=== PATIENT | male | born 1935 | race Caucasian/White ===

== ENCOUNTER 2017-06-01 13:17 | Observation (INO) | payer MEDICARE, OTHER ==
[~2017-06-01] VITALS: Ht 180.3 cm; Wt 93.4 kg
[2017-06-01 15:10] LABS: BASOPHILS 0.3 % (0-2); EOSINOPHILS 0.9 % (0-7); HEMATOCRIT 41.8 % (42.0-54.0); HEMOGLOBIN 13.5 g/dL (13.5-17.5); IMMATURE GRANULOCYTES 0.5 % (0-5); LYMPHOCYTES 9.8 % (15-50); MCH 29.8 pg (26.0-34.0); MCHC 32.3 g/dL (31.0-37.0); MCV 92.3 fL (80.0-100.0); MEAN PLATELET VOLUME 9.9 fL (7.4-10.4); MONOCYTES 9.7 % (2-11); NEUTROPHILS 78.8 % (40-80); PLATELET COUNT 180 10x3/uL (130-400); RBC 4.53 10x6/uL (4.20-6.10); RDW 13.8 % (11.5-14.5)
[2017-06-01 15:27] LABS: ALBUMIN 3.5 g/dL (3.4-5.0); ALKALINE PHOSPHATASE 104 U/L (46-116); ALT (SGPT) 18 U/L (10-68); BILIRUBIN - TOTAL 0.26 mg/dL (0.2-1.3); CALC OSMOLALITY 283 mosm/kg (275-300); CALCIUM 8.5 mg/dL (8.5-10.1); CARBON DIOXIDE 30.3 mmol/L (21.0-32.0); CHLORIDE - SERUM 104 mmol/L (98-107); CREATININE - SERUM 1.4 mg/dL (0.6-1.3); POTASSIUM - SERUM 4.2 mmol/L (3.5-5.1); PROTEIN - SERUM 7.6 g/dL (6.4-8.2); SODIUM 140 mmol/L (136-145); UREA NITROGEN 18 mg/dL (7-18); eGFR NON AFRICAN AMERICAN 51 mL/min (90-120)
[2017-06-01 15:28] LABS: GLUCOSE 157 mg/dL (74-106)
[2017-06-01 15:40] LABS: CKMB 0.3 U/L (0.0-3.6); CREATINE KINASE 59 UL (21-232); TROPONIN-I < 0.017 ng/mL (0.000-0.060)
[2017-06-01 16:01] LABS: APPEARANCE HAZY (CLEAR); BILIRUBIN NEGATIVE (NEGATIVE); COLOR DK YELLOW (YELLOW); GLUCOSE NEGATIVE (NEGATIVE); KETONE SMALL mg/dL (NEGATIVE); NITRITE NEGATIVE (NEGATIVE); PROTEIN 1+ mg/dL (NEGATIVE); SPECIFIC GRAVITY 1.025 (1.005-1.020); UROBILINOGEN NORMAL (NORMAL)
[2017-06-01 16:02] LABS: EPITHELIAL CELLS 0-5 /hpf (0-5); LEUKOCYTE ESTERASE TRACE (NEGATIVE); MUCUS >1+ /lpf (NONE SEEN); RED CELLS - URINE 0-5 /hpf (0-5)
[2017-06-01 16:03] LABS: BACTERIA FEW /hpf (NONE SEEN)
[2017-06-01 20:00] VITALS: BP 173/89
[2017-06-01 22:57] LABS: CKMB 0.3 U/L (0.0-3.6); CREATINE KINASE 57 UL (21-232); TROPONIN-I < 0.017 ng/mL (0.000-0.060)
[2017-06-02] VITALS: BP 136/88
[2017-06-02 00:59] VITALS: BMI 29.0
[2017-06-02] MEDS ORDERED: HYTRIN5 MG PO (01:41)
[2017-06-02] MEDS ORDERED: ATIVAN0.5 MG PO (01:42)
[2017-06-02] MEDS ORDERED: CLARITIN 10 MG10 MG PO (01:44)
[2017-06-02] MEDS ORDERED: PAROXETINE HCL10 MG PO (01:45)
[2017-06-02] MEDS ORDERED: BAYER CHEWABLE81 MG PO (01:46)
[2017-06-02] MEDS ORDERED: NAMENDA10 MG PO (01:46)
[2017-06-02] MEDS ORDERED: VITAMIN E400 UNI2 PO (01:47)
[2017-06-02] MEDS ORDERED: ASCORBIC ACID500 MG PO (01:48)
[2017-06-02] MEDS ORDERED: TUMS500 MG PO (01:49)
[2017-06-02] MEDS ORDERED: ACETAMINOPHEN500 M1 PO (01:49)
[2017-06-02] MEDS ORDERED: SYSTANE 0.3-0.4%5 ML EACH EYE (01:51)
[2017-06-02 03:46] LABS: BASOPHILS 0.4 % (0-2); EOSINOPHILS 5.4 % (0-7); HEMATOCRIT 38.2 % (42.0-54.0); HEMOGLOBIN 12.3 g/dL (13.5-17.5); IMMATURE GRANULOCYTES 0.4 % (0-5); LYMPHOCYTES 28.8 % (15-50); MCH 29.6 pg (26.0-34.0); MCHC 32.2 g/dL (31.0-37.0); MEAN PLATELET VOLUME 10.1 fL (7.4-10.4); MONOCYTES 13.2 % (2-11); NEUTROPHILS 51.8 % (40-80); PLATELET COUNT 176 10x3/uL (130-400); RBC 4.15 10x6/uL (4.20-6.10); RDW 13.9 % (11.5-14.5)
[2017-06-02 03:47] LABS: WBC 5.5 10x3/uL (4.8-10.8)
[2017-06-02 04:00] VITALS: BP 147/84
[2017-06-02 04:10] LABS: CALC OSMOLALITY 282 mosm/kg (275-300); CALCIUM 8.1 mg/dL (8.5-10.1); CARBON DIOXIDE 28.2 mmol/L (21.0-32.0); CHLORIDE - SERUM 107 mmol/L (98-107); CKMB 0.5 U/L (0.0-3.6); CREATINE KINASE 81 UL (21-232); CREATININE - SERUM 1.2 mg/dL (0.6-1.3); GLUCOSE 100 mg/dL (74-106); POTASSIUM - SERUM 4.2 mmol/L (3.5-5.1); SODIUM 141 mmol/L (136-145); TROPONIN-I < 0.017 ng/mL (0.000-0.060); UREA NITROGEN 18 mg/dL (7-18); eGFR NON AFRICAN AMERICAN 61 mL/min (90-120)
--- NOTE | 2017-06-02 07:40 | NUR ---
PATIENT RECEIVED IN HIGH GONZALEZ POSITION. NO SIGNS OF DISTRESS NOTED. FAMILY AT BEDSIDE. DENIES NEEDS. SIDE RAILS UP X2. BED IN LOW POSITION. CALL LIGHT IN REACH.
[2017-06-02 07:58] VITALS: BP 142/82
--- NOTE | 2017-06-02 08:50 | NUR ---
PATIENT ALERT IN BED EATING BREAKFAST. TOLERATING WELL. SCHEDULED MEDICATION ADMINISTERED. FAMILY PRESENT. SCHEDULED MEDICATION ADMINISTERED. DENIES NEEDS. BED IN LOW POSITION. CALL LIGHT IN REACH. SIDE RAILS UP X2.
[2017-06-02 10:12] LABS: CKMB 0.7 U/L (0.0-3.6); CREATINE KINASE 68 UL (21-232)
[2017-06-02 10:16] LABS: TROPONIN-I < 0.017 ng/mL (0.000-0.060)
[2017-06-02 12:24] VITALS: BP 154/87
[2017-06-02 12:40] VITALS: Ht 180.3 cm; Wt 93.4 kg
--- NOTE | 2017-06-02 13:00 | NUR ---
PATIENT UP AMBULATING IN ROOM WITH ASSIST FROM FAMILY. NO SIGNS OF DISTRESS NOTED.
[2017-06-02] MEDS ORDERED: KEFLEX500 MG PO (13:34)
--- NOTE | 2017-06-02 13:45 | NUR ---
SITTING UP IN CHAIR AT BEDSIDE. NO SIGNS OF DISTRESS NOTED. FAMILY PRESENT. ANTICIPATING D/C HOME. IV TO LEFT FOREARM D/C WITH CATH TIP INTACT. SITE COVERED WITH GAUZE AND BANDAID.
--- NOTE | 2017-06-02 13:55 | NUR ---
Patient Name: KARINA MORA Admission Status: ER Accout number: [id number] Admission Date: 06-01-2017 : 1933 Admission Diagnosis: Attending: RAMO HERRERA Current LOS: 1 Anticipated DC Date: 06-02-2017 Planned Disposition: Home Primary Insurance: MEDICARE A & B Discharge Planning Comments: CM MET WITH FAMILY REGARDING D/C NEEDS AND PLANS. PATIENT IS DISCHARGING HOME TODAY. FAMILY STATED PATIENT HAS DEMENTIA AND THEY WILL DRIVE HIM HOME AT DISCHARGE. DAUGHTER STATED PATIENT NEEDS HELP WITH BATH, DRESSING, AND MED MGT. PATIENTS PCP IS DR. GHOSH AND PHARMACY IS [facility]. FAMILY REF. HOME HEALTH AND REQUESTED INFO ON IN HOUSE CARE. CM GAVE FAMILY INFORMATION REGARDING IN HOME CARE. CM WILL CONTINUE TO FOLLOW PATIENT WITH D/C NEEDS AND PLANS. PCP DR. [facility] [phone] JASWINDER () [phone] Medical Sales Associate: Judi Silverio Is the patient Alert and Oriented? No 0 * How many steps to enter\exit or inside your home? 3 0 * PCP DR. GHOSH 0 * Pharmacy [facility] 0 * Preadmission Environment Home with Family 0 * ADLs Independent 0 * Equipment None 0 * List name and contact numbers for known caregivers / representatives who currently or will assist patient after discharge: JASWINDER () [phone] * Community resources currently utilized None 0 * Additional services required to return to the preadmission environment? Yes 0 * Can the patient safely return to the preadmission environment? Yes 0 * Has this patient been hospitalized within the prior 30 days at any hospital? No 0 Grand Total: 0
--- NOTE | 2017-06-02 14:29 | HP ---
PATIENT: KARINA MORA MEDICAL RECORD: [id number] ACCOUNT: [id number] LOCATION:D.[facility] [id number] : 33 ADMISSION DATE: 06/01/17 HISTORY AND PHYSICAL EXAMINATION REASON FOR ADMISSION: Syncopal episode. HISTORY OF PRESENT ILLNESS: The patient is an 82-year-old male with advanced late-onset dementia. He was at home with his when he was walking down some stairs. Reportedly, he called out to his and she helped him at the stairs. He sat in the chair, his head popped back and he was "out for 15 minutes." His said he looked pale, but did not turn blue and had no trouble breathing, did not seize or have any incontinence. By the time EMS arrived, he was still sitting back to the chair, but was coming around. His pulse was somewhat thready, but by the time EMS evaluated him, he was awake and more alert and denied any problems or any recollection of what happened. For that reason, he was brought to the ED and initial exam shows no new deficits. He denies any recent headache, visual change, chest pain or new confusion. PAST MEDICAL HISTORY: Late-onset dementia, history of anxiety, depression, fatigue, insomnia; history of mitral valve regurgitation, moderate; hypertension. PAST SURGICAL HISTORY: He had an inguinal hernia repair approximately [address] Lala[address] He has had cataract surgery in the past in the right eye. HOME MEDICATIONS: Loratadine 10 mg a day, aspirin 81 mg a day, terazosin 5 mg a day, lorazepam 0.5 mg p.r.n. anxiety and memantine 10 mg b.i.d. ALLERGIES: None mentioned. SOCIAL HISTORY: Former smoker. Does not drink alcohol. Lives with his . FAMILY HISTORY: Father at 69 from hypertension and heart disease. Mother at 74 from some type of cancer. REVIEW OF SYSTEMS: The patient currently is sitting up in the ED on the gurney without problems. GENERAL: He denies any recent fatigue or new-onset headaches or fever. HEENT: He has some trouble with his vision, but no big change recently. Denies hearing difficulty. RESPIRATORY: Denies shortness of breath or cough. CARDIAC: Denies exertional chest pain or claudication. GASTROINTESTINAL: No nausea, vomiting or change in stools. ENDOCRINE: Denies polyuria or polydipsia. NEUROLOGIC: Denies history of stroke. Does admit that he has poor memory. He denies any history of head trauma or seizures in the past. ENDOCRINE: Nocturia once nightly. Denies polyuria or polydipsia. INTEGUMENT: No rash or itching. PSYCHIATRIC: Denies depressed mood PHYSICAL EXAMINATION: VITAL SIGNS: His weight is 210 pounds, height is 5 feet 11 inches, BMI 29.1. Blood pressure 130/78 with a heart rate of 90 and regular. GENERAL: The patient is alert and oriented at this time. He knows he is in Hot HISTORY AND PHYSICAL [id number] [place], [place], knows his date. HEENT: Normocephalic. Eyes are clear. NECK: No bruits appreciated. CHEST: Distant breath sounds without wheeze or rales. HEART: Regular rate and rhythm without murmur. ABDOMEN: Soft, nontender. GENITOURINARY: Unremarkable. RECTAL: Deferred. EXTREMITIES: He has trace bipedal edema. No acrocyanosis. NEUROLOGICAL: The patient is oriented to person, place and time. Cannot subtract serial sevens. He has no obvious motor or sensory deficits. He is sitting without difficulty. Can stand without difficulty and take a few steps without losing his balance. LABORATORY DATA: His white count 8000, H&H of 13.5 and 41.8. Chemistry is unremarkable except for creatinine of 1.4 and glucose of 157. Liver functions and cardiac enzymes are negative. Urinalysis: Urine is hazy with specific gravity of 1.025, protein is 1+, 0-5 red, 5-10 white cells, few bacteria. CT of the head reported by ED is totally normal. EKG shows sinus rhythm. ASSESSMENT: Syncopal episode, etiology unknown; symptoms being more compatible with arrhythmia, but he has no neurologic deficits postictal state. History of hypertension, mitral valve insufficiency, anxiety and depression. PLAN: The patient will be admitted to observation for telemetry. Serial cardiac enzymes. Await CT scan results. Consider EEG and carotid Dopplers as well. Dr. Armendariz will assume care of this patient in the a.m. TRANSINT:[id number] Voice Confirmation ID: [id number] DOCUMENT ID: [id number] RAMO HERRERA MD at 1429 CC: [id number] DICTATION DATE: 06/01/17 1834 STRAW HAT WASHER OPERATOR: 06/01/172021 ADM IN [place] [id number] [place] [address]
--- NOTE | 2017-06-02 15:17 | NUR ---
D/C TEACHING AND PRESCRIPTION PROVIDED TO . STATES UNDERSTANDING. QUESTIONS ANSWERED.
--- NOTE | 2017-06-02 15:30 | NUR ---
PATIENT D/C HOME WITH . TRANSFERRED DOWNSTAIRS VIA WHEELCHAIR WITH VOLUNTEER.
== END 2017-06-02 15:51 | disposition home or self-care (01) ==
LOC: D.ER 13:17 → D.MS 18:13 → OBSVTIME 18:13 → D.MS 18:13
PROVIDERS: Family Medicine; ADMIT Family Medicine
DX: R55 Syncope and collapse (principal); F03.90 Unspecified dementia, unspecified severity, without behavioral disturbance, psychotic disturbance, mood disturbance, and anxiety; F41.9 Anxiety disorder, unspecified; F32.9 Major depressive disorder, single episode, unspecified; I07.1 Rheumatic tricuspid insufficiency; Z87.891 Personal history of nicotine dependence

== ENCOUNTER 2017-08-07 13:38 | Emergency (ER) | payer MEDICARE, OTHER ==
[2017-06-02 12:40] VITALS: BMI 28.7
[~2017-08-07 13:38] MED LIST: ACETAMINOPHEN500 M1 PO; ASCORBIC ACID500 MG PO; ATIVAN0.5 MG PO; BAYER CHEWABLE81 MG PO; CLARITIN 10 MG10 MG PO; HYTRIN5 MG PO; KEFLEX500 MG PO; NAMENDA10 MG PO; PAROXETINE HCL10 MG PO; SYSTANE 0.3-0.4%5 ML EACH EYE; TUMS500 MG PO; VITAMIN E400 UNI2 PO
[2017-08-07 15:02] LABS: BASOPHILS 0.3 % (0-2); EOSINOPHILS 2.6 % (0-7); HEMATOCRIT 39.6 % (42.0-54.0); HEMOGLOBIN 12.6 g/dL (13.5-17.5); IMMATURE GRANULOCYTES 0.3 % (0-5); LYMPHOCYTES 24.1 % (15-50); MCH 29.9 pg (26.0-34.0); MCHC 31.8 g/dL (31.0-37.0); MCV 94.1 fL (80.0-100.0); MEAN PLATELET VOLUME 9.9 fL (7.4-10.4); MONOCYTES 11.3 % (2-11); NEUTROPHILS 61.4 % (40-80); PLATELET COUNT 186 10x3/uL (130-400); RBC 4.21 10x6/uL (4.20-6.10); RDW 13.4 % (11.5-14.5); WBC 5.8 10x3/uL (4.8-10.8)
[2017-08-07 15:11] LABS: APTT 26.5 SECONDS (22.8-39.4); INR 0.97 (0.85-1.17); PROTIME 12.7 SECONDS (11.6-15.0)
[2017-08-07 15:24] LABS: ALBUMIN 3.2 g/dL (3.4-5.0); ALKALINE PHOSPHATASE 118 U/L (46-116); ALT (SGPT) 15 U/L (10-68); BILIRUBIN - TOTAL 0.22 mg/dL (0.2-1.3); CALC OSMOLALITY 284 mosm/kg (275-300); CALCIUM 8.6 mg/dL (8.5-10.1); CARBON DIOXIDE 27.8 mmol/L (21.0-32.0); CHLORIDE - SERUM 106 mmol/L (98-107); CREATININE - SERUM 1.2 mg/dL (0.6-1.3); GLUCOSE 124 mg/dL (74-106); POTASSIUM - SERUM 4.2 mmol/L (3.5-5.1); SODIUM 142 mmol/L (136-145); UREA NITROGEN 16 mg/dL (7-18); eGFR NON AFRICAN AMERICAN 61 mL/min (90-120)
[2017-08-07 15:34] LABS: CKMB 0.6 U/L (0.0-3.6); CREATINE KINASE 54 UL (21-232); MAGNESIUM - SERUM 2.2 mg/dL (1.8-2.4)
[2017-08-07 15:44] LABS: TROPONIN-I < 0.017 ng/mL (0.000-0.060)
== END 2017-08-07 13:40 | disposition home or self-care (01) ==
LOC: D.ER 13:38
PROVIDERS: Family Medicine
DX: G45.9 Transient cerebral ischemic attack, unspecified (principal); I45.10 Unspecified right bundle-branch block

== ENCOUNTER → 2017-12-04 12:53 | Outpatient (CLI) | payer MEDICARE, OTHER ==
[2017-06-02 12:40] VITALS: BMI 28.7
== END | disposition home or self-care (01) ==
LOC: D.CT 12:53
DX: F03.90 Unspecified dementia, unspecified severity, without behavioral disturbance, psychotic disturbance, mood disturbance, and anxiety (principal)

== ENCOUNTER → 2018-03-26 09:09 | Outpatient (CLI) | payer MEDICARE, OTHER ==
[2017-06-02 12:40] VITALS: BMI 28.7
== END | disposition home or self-care (01) ==
LOC: D.RAD 09:09
DX: K62.5 Hemorrhage of anus and rectum (principal)

== ENCOUNTER 2018-09-21 10:26 | Emergency (ER) | payer MEDICARE, OTHER ==
[~2018-09-21] VITALS: Ht 180.3 cm; Wt 2.7 kg
[2018-09-21 10:58] LABS: BASOPHILS 0.8 % (0-2); EOSINOPHILS 6.9 % (0-7); HEMATOCRIT 40.4 % (42.0-54.0); HEMOGLOBIN 13.1 g/dL (13.5-17.5); IMMATURE GRANULOCYTES 0.4 % (0-5); LYMPHOCYTES 34.7 % (15-50); MCH 29.7 pg (26.0-34.0); MCHC 32.4 g/dL (31.0-37.0); MCV 91.6 fL (80.0-100.0); MEAN PLATELET VOLUME 9.6 fL (7.4-10.4); MONOCYTES 11.2 % (2-11); PLATELET COUNT 203 10x3/uL (130-400); RBC 4.41 10x6/uL (4.20-6.10); RDW 13.6 % (11.5-14.5); WBC 5.1 10x3/uL (4.8-10.8)
[2018-09-21 11:13] LABS: ALBUMIN 3.1 g/dL (3.4-5.0); ANION GAP 12.5 mmol/L (8-16); BILIRUBIN - TOTAL 0.29 mg/dL (0.2-1.3); CALCIUM 8.7 mg/dL (8.5-10.1); CARBON DIOXIDE 30.5 mmol/L (21.0-32.0); CREATININE - SERUM 1.3 mg/dL (0.6-1.3); PROTEIN - SERUM 7.4 g/dL (6.4-8.2)
[2018-09-21 13:46] LABS: APPEARANCE CLOUDY (CLEAR); BILIRUBIN NEGATIVE (NEGATIVE); COLOR YELLOW (YELLOW); GLUCOSE NEGATIVE (NEGATIVE); KETONE NEGATIVE (NEGATIVE); NITRITE NEGATIVE (NEGATIVE); PROTEIN NEGATIVE (NEGATIVE); UROBILINOGEN NORMAL (NORMAL)
[2018-09-21 13:47] LABS: BACTERIA FEW /hpf (NONE SEEN); EPITHELIAL CELLS 0-5 /hpf (0-5); MUCUS <1+ /lpf (NONE SEEN); RED CELLS - URINE 0-5 /hpf (0-5); WHITE CELLS - URINE OCC /hpf (0-5)
[2018-09-21] MEDS ORDERED: VITAMIN B-121000 MCG PO (19:16)
== END 2018-09-21 17:15 | disposition other institution (70) ==
LOC: D.ER 10:26
PROVIDERS: Family Medicine
DX: M62.81 Muscle weakness (generalized) (principal); F03.90 Unspecified dementia, unspecified severity, without behavioral disturbance, psychotic disturbance, mood disturbance, and anxiety; R26.9 Unspecified abnormalities of gait and mobility; I10 Essential (primary) hypertension

== ENCOUNTER 2018-09-21 16:41 | Inpatient (IN) | payer MEDICARE, OTHER ==
[~2018-09-21] VITALS: Ht 175.3 cm; Wt 92.5 kg
--- NOTE | 2018-09-21 18:00 | NUR ---
The patient is admitted from the Emergency room, he lives at home with his . They have been 62 years. Apparently the patient has dementia and has been doing well, he walks to the mailbox, walks to his shop daily, but last night he was not able to walk. In the ER, they could not find anything wrong with him medically and wanted to send him home. The patient is not aggressive, but he is very demented. He can not tell me where he is, he does not know the year, the president. He looks to his to answer questions. He has severe memory deficits. The family is worried and asks a lot of questions. The patient's does not want her to have Haldol, I explained that I will bring it up to the psychiatrist, but it is up to the
[2018-09-21 18:22] VITALS: BP 153/81; BMI 30.3
[2018-09-21] MEDS ORDERED: VITAMIN B-121000 MCG PO (19:16)
[2018-09-21 20:00] VITALS: BP 122/75; BP 125/80
--- NOTE | 2018-09-21 21:12 | NUR ---
THIS IS A NEW PATIENT AND HE IS ALERT AND ORIENTED TO SELF ONLY. HE HAS A VERY SHORT TERM MEMORY AND IS EXCESSIVELY WORRYING ABOUT HIS AND ABOUT GOING HOME, SOMEWHAT FIGIDITY. NO MEDS AVAILABLE TONIGHT. IN WHEELCHAIR. WILL MONITOR TO PATIENT
[2018-09-22 08:21] LABS: CHOL - HDL RATIO 6.2 ratio (2.3-4.9); LDL-HDL RATIO 4.5 ratio (1.5-3.5); THYROID STIMULATING HORMONE 6.68 uIU/mL (0.36-3.74)
--- NOTE | 2018-09-22 08:40 | NUR ---
Attempted to feed the patient this am, he is too sleepy.
--- NOTE | 2018-09-22 09:30 | NUR ---
The patient's daughter called, she and her mother are very upset that the patient received haldol last night. She says "We are just concerned that we do not want Dad to be a zombie, He was fine when we brought him in." Tried to explain that "I am no Dr. but I have worked in psych a long time and Mr. Lanza looks like he is in late stage dementia." The dtr said "Really, how are we able to keep him home so long?" Explained to her that he is familiar with home and he can go through the motions more or less. The daughter would like to speak to [employer] as soon as possible. She also says she will contact Chad pineda. Did explain that the patient is sleeping, one because he only slept 2 hours last night and two he had the prn last night. The daughter is upset and says "Well, is that going to mess up his sleep pattern?" Tried to explain that the Dr. will try to prescribe the medications as appropriate. Patient's daughter said "Ok, I will see you later." reassure her that we will try to work with the medications and get him
[2018-09-22 09:51] VITALS: BMI 30.2
--- NOTE | 2018-09-22 11:15 | NUR ---
The patient is trying to stand on his own he has forgotten how to walk. Did assist him to stand with a walker, with two nurses standing by him he did walk about two feet, he walked with short unsteady steps.
--- NOTE | 2018-09-22 11:22 | NUR ---
Patient is trying to get up and walk, did ask him if he needed something. He said "Yes, some water."
--- NOTE | 2018-09-22 11:26 | NUR ---
Did provide the patient some iced water. He did say "Thank you."
--- NOTE | 2018-09-22 14:42 | NUR ---
PATIENT UNSTEADY ON FEET AND TIRES EASILY. PATIENT REQUIRES CONSTANT SUPERVISION AND RE-DIRECTION TO NOT STAND ALONE. RE-DIRECTION REQUIRED EVERY 60 SECONDS, BUT QUICKLY FORGETS. PATIENT OBSESSED WITH GOING TO GET GAS FOR HIS TRUCK. UNABLE TO RE-DIRECT. ATIVAN 0.5 MG ADMIN PO FOR ANXIETY.
--- NOTE | 2018-09-22 15:01 | NUR ---
The patient remains anxious. Multiple attempts are made to sit by him and talk with him, trying to redirect him as he currently wants to get gas in his pickup. He wants to try to walk, but at this time his legs are weak, will continue to try to stand him at different intervals.
--- NOTE | 2018-09-22 15:58 | NUR ---
CONT RESTLESSNESS, HOWEVER ANXIETY SOMEWHAT DECREASED.
--- NOTE | 2018-09-22 16:17 | NUR ---
DAUGHTER AND SON-IN-LAW HERE TO VISIT.
[2018-09-22 21:10] VITALS: BP 137/86
--- NOTE | 2018-09-22 23:22 | NUR ---
PATIENT IS ALERT TO SELF ONLY, TRYING TO GET UP CONSTANTLY AND SAYING "I GOT TO GO HOME". CAN NOT BE REDIRECTED. NO ADVERSE REACTIONS NOTED TO MEDS. WILL FOLLOW POC
--- NOTE | 2018-09-23 01:09 | NUR ---
HAVE SPOKEN WITH PATIENT'S DAUGHTER SEVERAL TIMES REGARDING PATIENT'S CONDITION AND BEHAVIOR. HAVE EXPLAINED TO HER THAT THIS IS THE DISEASE PROCESS, THE REASON FOR HIS INABILITY TO WALK.
[2018-09-23 07:00] VITALS: BP 158/90
--- NOTE | 2018-09-23 10:00 | PSY ---
PATIENT NAME:KARINA MORA MEDICAL RECORD: [id number] : 33 LOCATION:[facility] ADMISSION DATE: 09/21/18 ACCOUNT: [id number] PSYCHIATRIC EVALUATION DATE OF EVALUATION: 09/22/18 IDENTIFYING DATA: The patient is 83 years old and he is admitted to the hospital on a voluntary basis secondary to agitation. CHIEF COMPLAINT: None. HISTORY OF PRESENT ILLNESS: The patient's family apparently brought him to the Emergency Room yesterday and reported that he was unable to walk even though he had been walking the day prior. Apparently, an evaluation in the Emergency Room did not indicate any kind of obvious or overt problem that would explain why he could not walk. There was no reason to admit him to the medical floor. He was medically stable from other standpoints and it was identified that he had been agitated with his family, so he was referred to us and accepted for admission. The patient has no recollection of being agitated, although he was agitated last night and received p.r.n. Ativan. He is calm today, but severely impaired cognitively. He is only able to walk a short distance with assistance. PAST MEDICAL HISTORY: Significant for hypertension and bilateral leg weakness with gait difficulty. He also has gastroesophageal reflux disease. PAST PSYCHIATRIC HISTORY: None with regard to hospitalizations, although he has been previously diagnosed with dementia and it is unknown at this point when or how long ago the diagnosis was made. He apparently has also had some difficulty with either depression or anxiety that is fairly chronic, but when he is asked about this, he does endorse it. There is no known history of substance abuse or self-harm. FAMILY HISTORY: Noncontributory. ALLERGIES: No known drug allergies. CURRENT MEDICATIONS: Include Ativan, Hytrin, Claritin, Namenda, aspirin, vitamin E, vitamin C, calcium, and vitamin B12. SOCIAL HISTORY: The patient has been for 62 years. He worked in a [employer] and he has an adult daughter, who is involved with his care. MENTAL STATUS EXAMINATION: The patient is awake, alert and oriented to person only. His mood is euthymic. His affect appropriate. Thought processes are circumstantial. Memory, concentration, and abstraction abilities are moderately impaired, and he denies any intent to harm himself or others as well as psychotic symptoms. ASSETS: Supportive family members. LIABILITIES: Limited insight. DIAGNOSTIC IMPRESSION: AXIS I: Senile dementia of the Alzheimer's type with behavioral disturbances. AXIS II: None. AXIS III: Hypertension, generalized weakness with gait difficulty, gastroesophageal reflux disease. AXIS IV: Moderate stressors. AXIS V: Global assessment of functioning is 35. PLAN: At this time, the patient will have physical therapy ordered to work with him regarding gait training and strengthening. At this point, I am going to just continue him on his current medications and we will continue to obtain collateral sources of information while formulating a better picture on the situation. At this point, I can say that he has dementia. I can say that it is fairly advanced and I think that whatever expectations the family has regarding improvement in his condition is going to have to be fairly limited. I think it would be a victory if we can increase his strength and ability to walk along with reducing his level of agitation. Other than this, I do think that there is anything realistically that can be done about what is after all a progressive disease that is advanced at this point. TRANSINT:[id number] Voice Confirmation ID: [id number] DOCUMENT ID: [id number] TILA MENSAH MD at 1000 CC: [id number] DICTATION DATE: 09/22/18 1232 PATTERN HAND: 09/22/18 1252 [facility] IN [place] [id number] [place] [id number]
--- NOTE | 2018-09-23 14:10 | NUR ---
CONFUSED AND DISORIENTED.WAS COMPLIANT WITH MEDS THIS AM BUT REFUSES TO STAY IN CHAIR ,INTENTIONALY SLIDES DOWN IN RECLINER ALMOST TO THE POINT OF COMMING OFF OF RECLINER.IS VERY WEAK IN HIS LEGS.WAS AMBULATED APPOX.8 FEET BY PT TODAY WITH WALKER.WILL NOT REDIRECT.ATIVAN 0.5MG PO GIVEN FOR ANXIETY AND RESTLESSNESS.WILL CONTINUE WITH PLAN OF CARE,MONITOR FOR CHANGES AND SAFETY.
--- NOTE | 2018-09-23 15:30 | NUR ---
DAUGHTER, , AND SON-IN-LAW HERE TO VISIT. EXPRESSED INTEREST IN HAVING PT SENT TO REHAB, BUT ONLY AFTER CARE PHYSICIANS COULD GET LEXIE'S MEDS ADJUSTED.
--- NOTE | 2018-09-23 17:30 | NUR ---
WHILE EATING SUPPER, PATIENT INTENTIONALLY POURED HIS ENTIRE CARTON OF MILK ON THE FLOOR BEFORE STAFF COULD REACH HIM TO INTERVENE.
--- NOTE | 2018-09-23 21:25 | NUR ---
RECEIVED IN BEDROOM. RESTING IN BED WITH EYES CLOSED. RESPONDS TO TOUCH. CONFUSED. CALM AND COOPERATIVE WITH CARE AND ASSESSMENT. ENCOURAGE TO EXPRESS NEEDS. REDIRECT AND REORIENT NEEDED. RESTING IN BED WITH EYES CLOSED AT THIS TIME. CONTINUE PLAN OF CARE
[2018-09-23 22:33] VITALS: BP 162/72
--- NOTE | 2018-09-24 07:00 | NUR ---
REC'D PT IN BED WITH EYES OPEN. AWAKE AND ALERT TO SELF ONLY. PT CALM AND COOPERATIVE WITH ASSESSMENT. PT IS ANXIOUS AT TIMES. PRESCRIBED MEDS PROVIDED. MED COMPLIANT AT THIS TIME. REDIRECT AND REORIENT NEEDED. FALL PRECAUTIONS IN PLACE. WILL CONTINUE TO MONITOR Q 15 MINUTES FOR SAFETY. WILL CPOC.
--- NOTE | 2018-09-24 07:30 | NUR ---
PT ATTEMPTING TO HIT STAFF IN THE STOMACH THIS AM DURING CARE. PT REDIRECTED AT THIS TIME. WILL CONTINUE TO MONITOR Q 15 MINUTES FOR SAFETY.
--- NOTE | 2018-09-24 07:45 | NUR ---
PT TRIES TO BITE STAFF WHEN PUTTING PT'S TEETH IN. PT UNABLE TO REDIRECT. TEETH AT IN PLACE AT THIS TIME. PT WILL NOT KEEP HIS TEETH IN HIS MOUTH AND CONTINUES TO BITE STAFF.
[2018-09-24 08:10] VITALS: BP 168/86
--- NOTE | 2018-09-24 08:30 | NUR ---
SPOKE WITH PT'S THIS MORNING REGARDING MED LIST. ALL HOME MEDS REVIEWED. MED LIST UPDATED. WILL DISCUSS MED WITH MD.
--- NOTE | 2018-09-24 09:00 | NUR ---
MEDS DISCUSSED WITH MEDICAL MD PER REQUEST. MEDS UPDATED AND FAMILY AWARE. STILL WAITING TO DISCUSS MENTAL HEALTH MEDS WITH RODRICK FOSTER. WILL UPDATE FAMILY AFTER DISCUSSION WITH RODRICK FOSTER.
--- NOTE | 2018-09-24 13:00 | NUR ---
SPOKE WITH PT'S DAUGHTER REGARDING MEDS AND PT CARE. ALL UPDATES GIVEN. EXPLAINED WILL MEET WITH DR. MENSAH AND DISCUSS PAXIL AND SEROQUEL AT THAT TIME. WILL CALL AND UPDATE FAMILY AFTER MEETING.
--- NOTE | 2018-09-24 13:56 | PN ---
PATIENT:KARINA MORA MEDICAL RECORD: [id number] LOCATION:[facility] ADMISSION DATE: 09/21/18 PROGRESS NOTE DATE OF SERVICE: 09/23/2018 SUBJECTIVE: The patient's case was discussed with staff. He has no new complaint. OBJECTIVE: The patient denies intent to harm himself or others. He generally tolerates his medicines well. ASSESSMENT: No change in diagnoses. PLAN: Current medicines and therapies have been reviewed and will be maintained. Long-term prognosis is guarded. TRANSINT:[id number] Voice Confirmation ID: [id number] DOCUMENT ID: [id number] TILA MENSAH MD at 1356 CC: [id number] DICTATION DATE: 09/23/18 1011 OVERCOIL STEPPER: 09/23/18 1022 ADM IN [place] [id number] [place] [address]
[2018-09-24 15:11] VITALS: BMI 30.2
--- NOTE | 2018-09-24 15:23 | NUR ---
FAMILY NOTIFIED AND UPDATED REGARDING MEDS. AUDREY ROBERT PER DR. MENSAH. WILL CONTINUE TO MONITOR AND CHANGE MEDS NEEDED.
[2018-09-24 17:11] LABS: BASOPHILS 0.3 % (0-2); EOSINOPHILS 3.3 % (0-7); HEMATOCRIT 43.3 % (42.0-54.0); HEMOGLOBIN 14.1 g/dL (13.5-17.5); IMMATURE GRANULOCYTES 0.3 % (0-5); MCH 29.7 pg (26.0-34.0); MCHC 32.6 g/dL (31.0-37.0); MCV 91.4 fL (80.0-100.0); MEAN PLATELET VOLUME 10.2 fL (7.4-10.4); MONOCYTES 9.9 % (2-11); NEUTROPHILS 68.2 % (40-80); PLATELET COUNT 205 10x3/uL (130-400); RBC 4.74 10x6/uL (4.20-6.10); RDW 13.8 % (11.5-14.5); WBC 6.4 10x3/uL (4.8-10.8)
[2018-09-24 23:16] VITALS: BP 130/70
--- NOTE | 2018-09-25 08:30 | NUR ---
RECEIVED IN HALLWAY WITH PEERS SITTING IN WHEELCHAIR. CONFUSED AND DISORIENTED. CALM AND COOPERATIVE WITH ASSESSMENT. PROVIDE PRESCRIBED MEDICATIONS. COMPLIANT WITH TAKING MEDICATIONS. FALL PRECAUTIONS IN PLACE. CONTINUE POC.
[2018-09-25 09:05] VITALS: BP 126/65
--- NOTE | 2018-09-25 15:13 | PN ---
PATIENT:KARINA MORA MEDICAL RECORD: [id number] LOCATION:[facility] ADMISSION DATE: 09/21/18 PROGRESS NOTE DATE OF SERVICE: 09/24/2018 SUBJECTIVE: The patient's case was discussed with staff. He has no new complaint. OBJECTIVE: The patient denies intent to harm himself or others. He generally tolerates his medicines well. ASSESSMENT: No change in diagnoses. PLAN: Current medicines have been reviewed and will be maintained. I am going to increase the dose of his trazodone slightly to assist with sleep consolidation. His long-term prognosis is guarded. TRANSINT:[id number] Voice Confirmation ID: [id number] DOCUMENT ID: [id number] TILA MENSAH MD at 1513 CC: [id number] DICTATION DATE: 09/24/18 1545 INTERNAL SALES ENGINEER: 09/24/18 1740 ADM IN [facility] [address] [place] [address]
--- NOTE | 2018-09-25 15:23 | NUR ---
SW SPOKE WITH PT'S DTR AND DISCUSSED DEMENTIA AND DISEASE PROGRESSION. SW ALSO DISCUSSED DISCHARGE PLANNING NEEDS. PT'S DTR, GIO, GAVE SW 7 DIFFERENT NURSING HOMES TO REFER TO. SHE STATED SHE WANTS THE BEST POSSIBLE CARE FOR A REHAB STAY IN A [facility] PLACEMENT. SW STATED SHE WOULD START REFERRING OUT WHEN PT'S BEHAVIORS GET MORE MATTHEW. GIO ASKED TO SPEAK TO THE PSYCHIATRIST, SW SET UP PHONE CALL. GIO VOICED NO OTHER NEEDS AT THIS TIME. LATE ENTRY FROM 09/24/18
--- NOTE | 2018-09-25 19:50 | NUR ---
RECEIVED IN HALLWAY. SITTING IN A RECLINING CHAIR. CALM AND COOPERATIVE WITH CARE AND ASSESSMENT. ENCOURAGE TO EXPRESS NEEDS. RESTING QUIETLY IN BED AT THIS TIME. CONTINUE PLAN OF CARE
[2018-09-25 23:57] VITALS: BP 130/70
[2018-09-26 08:00] VITALS: BP 138/75
--- NOTE | 2018-09-26 08:00 | NUR ---
REC'D PT IN HALLWAY IN RECLINING CHAIR. AWAKE AND ALERT WITH CONFUSED. CALM AND COOPERATIVE WITH ASSESSMENT. NO AGGRESSION NOTED. CALM AND COOPERATIVE WITH ASSESSMENT. REDIRECT AND REORIENT NEEDED. PRESCRIBED MEDS PROVIDED. MED COMPLIANT. FALL PRECAUTIONS IN PLACE. WILL CONTINUE TO MONITOR Q 15 MINUTES FOR SAFETY. WILL CPOC
[2018-09-26 10:59] VITALS: Ht 175.3 cm; Wt 92.5 kg
--- NOTE | 2018-09-26 15:00 | PN ---
PATIENT:KARINA MORA MEDICAL RECORD: [id number] LOCATION:[facility] ADMISSION DATE: 09/21/18 PROGRESS NOTE DATE OF SERVICE: 09/25/2018 SUBJECTIVE: The patient's case was discussed with staff. He has no new complaint. OBJECTIVE: The patient is in good behavioral control. He has poor insight about his condition. He seems a little bit sleepy, but he is not receiving anything that would be excessively sedating. He does get some trazodone, which he has been getting to help with sleep consolidation. I am going to go ahead and discontinue this because of my concerns about the sedation today. Also, he is not eating very well. If this does not cotton picker, I am going to prescribe a dose of Megace for him. TRANSINT:[id number] Voice Confirmation ID: [id number] DOCUMENT ID: [id number] TILA MENSAH MD at 1500 CC: [id number] DICTATION DATE: 09/25/18 1605 JIGSAW OPERATOR: 09/25/18 1743 ADM IN [place] [id number] [place] [id number]
--- NOTE | 2018-09-26 18:50 | NUR ---
PT DAUGHTER GIO GAYTAN CALLED EXPRESSED CONCERNS REGARDING PT LEFT ARM AND HAND WEAK WITH LITTLE MOVEMENT. ALSO EXPRESSED CONCERN REGARDING BACK PAIN. STATED" SPOKE WITH DR. MENSAH YESTERDAT HE SAID WAS GOING TO TALKED WITH MEDICAL DOCTOR ABOUT ORDERING X-RAY." PER GIO. THIS NURSE ANSWERED ALL QUESTIONS AND CONCERNS AND WILL REPORT TO MD.
--- NOTE | 2018-09-26 20:10 | NUR ---
GIVEN ATIVAN 0.5MG FOR ANXIETY, YELLING OUT FREQUENTLY, ALSO COMPLAINING OF BACK PAIN. NO ANALGESIC ORDERED PRN. WILL MONITOR FOR EFFECTIVENESS OF ATIVAN AND IF STILL NEEDS ANALGESIC WILL CALL .
[2018-09-26 23:37] VITALS: BP 140/70
--- NOTE | 2018-09-27 02:56 | NUR ---
B) CONFUSED, YELLING OUT FREQUENTLY AT START OF SHIFT. UNABLE TO EXPRESS NEEDS. BLE REMAIN WEAK, DURING TRANSFER FROM CHAIR TO BED REQUIRED TWO STAFF. COULD NOT WEIGHT BEAR, STAFF PHYSICALLY HOLDING PATIENT UP DURING STAND AND PIVOT TO BED, UNABLE TO TAKE A STEP. EXTREMELY UNSTEADY, ALARMS ON FOR SAFETY. COMPLAINED OF BACK PAIN, CONTINUES TO EXHIBIT LEFT ARM AND HAND WEAKNESS. I) MEDICATE ORDERED, MAINTAIN SAFETY TO PREVENT FALLS, ENCOURAGE TO VERBALIZE FEELINGS, REDIRECT BEHAVIOR NEEDED, ASSIST WITH ADL'S. R) RESTLESS TONIGHT, WAKES UP EASILY DURING ROUNDS, MUTTERING AND TALKING TO SELF, NO AGGRESSION, COMPLIANT WITH MEDICATIONS. P) CONTINUE TO MONITOR PER PLAN OF CARE.
[2018-09-27 07:00] VITALS: BP 152/80
--- NOTE | 2018-09-27 07:20 | NUR ---
PATIENT HAS SLEPT IN SHORT NAPS FOR 20 - 30 MINS AND ONE PERIOD OF A COUPLE HOURS FOR A TOTAL OF ABOUT 4 HRS SLEEP. STILL COMPLAINING OF BACK PAIN, ON UNIT AND WAS NOTIFIED OF SAME. PATIENT HAS NO PRN ANALGESIC ORDERS. ALSO NOTIFIED OF FAMILY'S REQUEST TO HAVE PATIENT'S BACK X-RAYED AND TO REASSESS PATIENT'S LEFT HAND AND LEFT ARM WEAKNESS. ASSESSED BY AND PATIENT IS NOW COMPLAINING OF LEFT SHOULDER PAIN, QUERY THE CAUSE OF LEFT ARM AND HAND WEAKNESS. WILL ORDER BOTH BACK AND LEFT SHOULDER X-RAY.
--- NOTE | 2018-09-27 14:08 | NUR ---
Nutrition Follow Up: Chart reviewed. Noted pt needs to be fed. Diet: Regular PO Intake: 26% meal avg BM: 09/23/18 Wt stable No new labs to assess Meds noted including Megace Rec continue current diet. Will honor food preferences and offer supplements prn. RD following.
--- NOTE | 2018-09-27 15:55 | PN ---
PATIENT:KARINA MORA MEDICAL RECORD: [id number] LOCATION:JET ModiLissy ADMISSION DATE: 09/21/18 PROGRESS NOTE DATE OF SERVICE: 09/26/2018 SUBJECTIVE: The patient's case was discussed with staff. He has no new complaint. OBJECTIVE: The patient is not eating or drinking adequately. He has been prescribed Megace to assist with this. His long-term prognosis is guarded. TRANSINT:[id number] Voice Confirmation ID: [id number] DOCUMENT ID: [id number] TILA MENSAH MD at 1555 CC: [id number] DICTATION DATE: 09/26/18 1503 ICE CUTTER: 09/26/18 1718 ADM IN [place] [id number] [place] [id number]
[2018-09-27 18:57] VITALS: BP 143/62
[2018-09-27 19:43] LABS: BASOPHILS 0.4 % (0-2); EOSINOPHILS 1.8 % (0-7); HEMATOCRIT 41.1 % (42.0-54.0); HEMOGLOBIN 13.2 g/dL (13.5-17.5); IMMATURE GRANULOCYTES 0.3 % (0-5); LYMPHOCYTES 16.1 % (15-50); MCH 29.5 pg (26.0-34.0); MCHC 32.1 g/dL (31.0-37.0); MCV 91.9 fL (80.0-100.0); MEAN PLATELET VOLUME 10.5 fL (7.4-10.4); MONOCYTES 14.6 % (2-11); NEUTROPHILS 66.8 % (40-80); PLATELET COUNT 218 10x3/uL (130-400); RBC 4.47 10x6/uL (4.20-6.10); RDW 14.1 % (11.5-14.5); WBC 7.7 10x3/uL (4.8-10.8)
[2018-09-27 20:17] LABS: ALBUMIN 3.2 g/dL (3.4-5.0); ANION GAP 16.6 mmol/L (8-16); BILIRUBIN - TOTAL 0.31 mg/dL (0.2-1.3); CALCIUM 9.1 mg/dL (8.5-10.1); CARBON DIOXIDE 25.6 mmol/L (21.0-32.0); CREATININE - SERUM 1.4 mg/dL (0.6-1.3); POTASSIUM - SERUM 4.2 mmol/L (3.5-5.1); PROTEIN - SERUM 7.1 g/dL (6.4-8.2); THYROID STIMULATING HORMONE 1.33 uIU/mL (0.36-3.74)
--- NOTE | 2018-09-27 23:30 | NUR ---
B) PATIENT CONTINUES WEAK, UNABLE TO WALK, TWO PERSON ASSIST WITH TRANSFERS. NO VOICED COMPLAINTS OF BACK OR LEFT SHOULDER PAIN, VOLTAREN UNGT WAS APPLIED AT BEDTIME. DEEMED EFFECTIVE. I) MEDICATE ORDERED, ASSESS MENTAL STATUS, REDIRECT AND REORIENT NEEDED, ASSESS FOR PAIN LEVEL, ASSIST WITH ADL'S. R) ORIENTED X [address], NO VERBAL OR PHYSICAL AGGRESSION, PAIN DEEMED TO BE MANAGED AT THIS TIME. P) MONITOR PER PLAN OF CARE.
[2018-09-28 10:00] VITALS: BP 155/105
--- NOTE | 2018-09-28 13:55 | NUR ---
The patient is resting easily, he is eating and drinking today. Inserted a 22 guage IV catheter in left hand, good flashback, IV D51/2 @ 100 ml/hr. He is resting easily at this time. He is oriented to self only. He can not stand today or walk, he is a two person assist with a struggle. Encourage the patient to drink more fluids, offer fluids every two hours, assist from sitting to standing position. Provide prescribed meds. The patient is compliant with meds, he can take two or three at a time on a spoon with a sip of water. Continue with POC.
--- NOTE | 2018-09-28 16:27 | PN ---
PATIENT:KARINA MORA MEDICAL RECORD: [id number] LOCATION:[facility] Modi112 ADMISSION DATE: 09/21/18 PROGRESS NOTE DATE OF SERVICE: 09/27/2018 SUBJECTIVE: The patient's case was discussed with staff. He has no new complaint. OBJECTIVE: The patient denies intent to harm himself or others. He is significantly impaired and continues to not eat or drink adequately. ASSESSMENT: No change in diagnoses. PLAN: Current medicines have been reviewed and will be maintained. I am going to check another set of baseline labs. TRANSINT:[id number] Voice Confirmation ID: [id number] DOCUMENT ID: [id number] TILA MENSAH MD at 1627 CC: [id number] DICTATION DATE: 09/27/18 1612 BOOKS SALESPERSON: 09/27/18 2158 ADM IN [place] [id number] [place] [address]
--- NOTE | 2018-09-28 18:25 | NUR ---
Patient said he had to urinate, but staff took him and he could not void, he said this twice. Did just in and out cath him as he kept saying he wanted to pee. Did obtain 500 cc clear dark yellow urine.
[2018-09-28 20:14] VITALS: BP 143/69
[2018-09-28 20:40] LABS: APPEARANCE CLEAR (CLEAR); BILIRUBIN NEGATIVE (NEGATIVE); COLOR YELLOW (YELLOW); GLUCOSE NEGATIVE (NEGATIVE); KETONE MODERATE mg/dL (NEGATIVE); NITRITE NEGATIVE (NEGATIVE); PROTEIN NEGATIVE (NEGATIVE); UROBILINOGEN NORMAL (NORMAL)
[2018-09-28 20:43] LABS: BACTERIA FEW /hpf (NONE SEEN)
--- NOTE | 2018-09-28 21:59 | NUR ---
PATIENT IS CONFUSED AND UNABLE TO COMPREHEND ANY INFORMATION. PATIENT HOLLERS OUT HIS DAUGHTER'S NAME. IV FLUIDS INFUSING. IV SITE WITHOUT REDNESS OR EDEMA. NO ADVERSE REACTIONS TO MEDICINE
[2018-09-29 07:09] LABS: BASOPHILS 0.3 % (0-2); EOSINOPHILS 2.9 % (0-7); HEMATOCRIT 38.8 % (42.0-54.0); HEMOGLOBIN 12.4 g/dL (13.5-17.5); IMMATURE GRANULOCYTES 0.1 % (0-5); LYMPHOCYTES 17.2 % (15-50); MCH 29.2 pg (26.0-34.0); MCV 91.3 fL (80.0-100.0); MEAN PLATELET VOLUME 10.5 fL (7.4-10.4); MONOCYTES 12.7 % (2-11); NEUTROPHILS 66.8 % (40-80); PLATELET COUNT 193 10x3/uL (130-400); RBC 4.25 10x6/uL (4.20-6.10); RDW 14.4 % (11.5-14.5); WBC 7.5 10x3/uL (4.8-10.8)
[2018-09-29 07:31] LABS: ALBUMIN 2.7 g/dL (3.4-5.0); ANION GAP 14.9 mmol/L (8-16); BILIRUBIN - TOTAL 0.41 mg/dL (0.2-1.3); CALCIUM 8.2 mg/dL (8.5-10.1); CREATININE - SERUM 1.1 mg/dL (0.6-1.3); POTASSIUM - SERUM 3.9 mmol/L (3.5-5.1); PROTEIN - SERUM 6.8 g/dL (6.4-8.2)
[2018-09-29 08:00] VITALS: BP 132/80
--- NOTE | 2018-09-29 10:30 | NUR ---
The patient is sleepy this morning, he did not sleep well last night. He knows his name, he awakens enough to take his medication, he did not eat breakfast. Provide prescribed meds, provide fluids as he awakens. He continues to have an IV infusing in his left AC. He is compliant with crushed meds in applesauce. Continue POC.
--- NOTE | 2018-09-29 11:47 | PN ---
PATIENT:KARINA MORA MEDICAL RECORD: [id number] LOCATION:JET Modi112 ADMISSION DATE: 09/21/18 PROGRESS NOTE DATE OF SERVICE: 09/28/2018 SUBJECTIVE: The patient's case was discussed with staff. He has no new complaint. OBJECTIVE: The patient denies intent to harm himself or others. He is only oriented to person. He currently is receiving IV hydration secondary to his poor oral intake. ASSESSMENT: No change in diagnoses. PLAN: Current medicines have been reviewed and will be maintained. Long-term prognosis is guarded. TRANSINT:[id number] Voice Confirmation ID: [id number] DOCUMENT ID: [id number] TILA MENSAH MD at 1147 CC: [id number] DICTATION DATE: 09/28/18 165 SLASH TRIMMER: 09/28/189 ADM IN [place] [id number] [place] [id number]
--- NOTE | 2018-09-29 19:00 | NUR ---
The patient has not voided all day of urine. Called [facility] and received new order. Catheterize and if there is a 200 ml return then leave indwelling.
--- NOTE | 2018-09-29 20:00 | NUR ---
PATIENT PULLED OUT IV. CATHETER TIP INTACT. WILL RESITE IV.
--- NOTE | 2018-09-29 21:45 | NUR ---
22 G IV RESITED TO RIGHT FOREARM X 1 ATTEMPT. BLOOD RETURN. FLUSHES WITHOUT DIFFICULTY.
[2018-09-29 21:54] VITALS: BP 130/66
--- NOTE | 2018-09-29 22:00 | NUR ---
PATIENT PULLED OUT IV. CATHETER TIP INTACT. 22G IV RESITED TO RIGHT WRIST X 2 ATTEMPTS. BLOOD RETURN. FLUSHES WITHOUT DIFFICULTY. WILL CONTINUE TO MONITOR.
--- NOTE | 2018-09-29 22:50 | NUR ---
16 FR PAULSON CATHETER INSERTED. BULB INFLATED WITH 10 CC STERILE SALINE. CATHETER SECURED TO LEFT INNER THIGH WITH STAT LOCK. 400 MLS CLEAR KATIE URINE RETURN NOTED IN PAULSON BAG. PATIENT VOICED DISCOMFORT BUT TOLERATED WELL. BED IN LOWEST POSITION. 2 SIDE RAILS UP. CALL ROE IN REACH. WILL CONTINUE TO MONITOR.
--- NOTE | 2018-09-29 23:41 | NUR ---
RECEIVED IN DAYROOM. RESTING IN RECLINER WITH EYES OPEN. COOPERATIVE WITH ASSESSMENT. RESISTIVE TO CARE AT TIMES. CONFUSED. ANXIOUS. CONTINUOUSLY PULLING AT IV. YELLING OUT. UNABLE TO BE REDIRECTED. PRN ATIVAN 0.5 MG IM GIVEN FOR INCREASING ANXIETY. PATIENT RESTING IN BED WITH EYES OPEN AND CONTINUES TO YELL. CONTINUE PLAN OF CARE.
[2018-09-30 06:47] LABS: CALC OSMOLALITY 293 mosm/kg (275-300); CALCIUM 8.9 mg/dL (8.5-10.1); CARBON DIOXIDE 28.2 mmol/L (21.0-32.0); CHLORIDE - SERUM 107 mmol/L (98-107); GLUCOSE 107 mg/dL (74-106); SODIUM 144 mmol/L (136-145); UREA NITROGEN 31 mg/dL (7-18); eGFR NON AFRICAN AMERICAN 75 mL/min (90-120)
[2018-09-30 06:52] LABS: POTASSIUM - SERUM 4.9 mmol/L (3.5-5.1)
--- NOTE | 2018-09-30 07:30 | NUR ---
PT IS RESTING QUIETLY IN RECLINING CHAIR. ALERT AND ORIENTED TO SLEF ONLY. CALM ANC COOPERATIVE WITH ASSESSMENT. PRESCRIBED MEDS PROVIDED. MED COMPLIANT. FALL PRECAUTIONS IN PLACE. NO AGGRESSION NOTED AT THIS TIME. WILL CONTINUE TO MONITOR Q 15 MINUTES FOR SAFETY. WILL CPOC
[2018-09-30 09:00] VITALS: BP 162/98
--- NOTE | 2018-09-30 12:04 | PN ---
PATIENT:KARINA MORA MEDICAL RECORD: [id number] LOCATION:JET Quintero ADMISSION DATE: 09/21/18 PROGRESS NOTE DATE OF SERVICE: 09/29/2018 SUBJECTIVE: The patient's case was discussed with staff. He has no new complaint. OBJECTIVE: The patient denies intent to harm himself or others. He does tolerate his medicines well. ASSESSMENT: No change in diagnoses. PLAN: The patient is going to be given a low dose of trazodone to assist with sleep consolidation. He continues to have an elevated BUN and efforts to give him adequate food and drink are very limited. TRANSINT:[id number] Voice Confirmation ID: [id number] DOCUMENT ID: [id number] TILA MENSAH MD at 1204 CC: [id number] DICTATION DATE: 09/29/18 1157 CYTOLOGIST: 09/29/18 1337 ADM IN [facility] [address] [place] [address]
--- NOTE | 2018-09-30 16:51 | NUR ---
PT IS VERY RESTLESS AND ANXIOUS. PT PULLING AT IV AND F/C. PT BECOMES AGGRESSSIVE WITH REDIRECTION. FAMILY PRESENT. PRN ATIVAN 0.5MG PO GIVEN PER ORDER. WILL CONTINUE TO MONITOR Q 15 MINUTES FOR SAFETY. WILL CPOC.
--- NOTE | 2018-09-30 17:55 | NUR ---
PRN MED EFFECTIVE AT THIS TIME. PT RESTING IN RECLINING CHAIR. WILL CONTINUE TO MONITOR Q 15 MINUTES FOR SAFETY.
--- NOTE | 2018-09-30 20:49 | NUR ---
RECEIVED IN DAYROOM. RESTING QUIETLY IN A CHAIR. CALM AND COOPERATIVE WITH CARE AND ASSESSMENT. NO SIGNS OF AGGRESSION. REDIRECT AND REORIENT NEEDED. CONTINUES TO REST QUIETLY IN A CHAIR. CONTINUE PLAN OF CARE
[2018-09-30 22:15] VITALS: BP 141/67
[2018-10-01 08:00] VITALS: BP 136/77
--- NOTE | 2018-10-01 11:00 | NUR ---
RECEIVED IN HALLWAY IN RECLINER WITH PEERS. ORIENTED TO SELF ONLY. PRESCRIBED MEDICATIONS PROVIDED. COMPLIANT WITH MEDICATIONS. REDIRECT AND REORIENT NEEDED. CONVERSATION MAKES NO SENSE. DIFFICULT TO REDIRECT. HE IS CONSTANTLY TRYING TO PULL ON PAULSON CATHETER AND IV SITE. MONITOR FOR BEHAVIORAL CHANGES. CONTINUE POC.
[2018-10-01 11:20] LABS: BASOPHILS 0.4 % (0-2); EOSINOPHILS 1.9 % (0-7); HEMATOCRIT 40.6 % (42.0-54.0); HEMOGLOBIN 13.2 g/dL (13.5-17.5); IMMATURE GRANULOCYTES 0.3 % (0-5); LYMPHOCYTES 13.8 % (15-50); MCH 29.6 pg (26.0-34.0); MCHC 32.5 g/dL (31.0-37.0); MEAN PLATELET VOLUME 10.4 fL (7.4-10.4); MONOCYTES 10.5 % (2-11); NEUTROPHILS 73.1 % (40-80); PLATELET COUNT 210 10x3/uL (130-400); RBC 4.46 10x6/uL (4.20-6.10); RDW 13.8 % (11.5-14.5); WBC 7.5 10x3/uL (4.8-10.8)
[2018-10-01 11:37] LABS: ALBUMIN 2.8 g/dL (3.4-5.0); ANION GAP 10.8 mmol/L (8-16); BILIRUBIN - TOTAL 0.43 mg/dL (0.2-1.3); CALCIUM 8.7 mg/dL (8.5-10.1); CARBON DIOXIDE 29.2 mmol/L (21.0-32.0); PROTEIN - SERUM 7.3 g/dL (6.4-8.2)
[2018-10-01 11:39] LABS: CREATININE - SERUM 1.3 mg/dL (0.6-1.3)
--- NOTE | 2018-10-01 14:00 | NUR ---
DAUGHTER CALLED AND SPOKE WITH ANDREINA LAW AND WAS UPDATED AND INFORMED THAT PATIENT HAD SNAPPED HIS PAULSON IN TWO AND REMOVED IT.
--- NOTE | 2018-10-01 14:00 | NUR ---
SITTING IN RECLINER, PATIENT HAS BEEN RESTLESS AND PULLING ON HIS PAULSON CATHETER. AFTER NUMEROUS TIMES HE FINALLY SNAPPED THE TUBING IN TWO PIECES. PAULSON REMOVED.
--- NOTE | 2018-10-01 14:30 | NUR ---
[facility]. HAD AN INCONTINENT STOOL.
--- NOTE | 2018-10-01 16:00 | NUR ---
PATIENT IS HALLUCINATING, PICKING AT THE AIR AT THINGS NOT THERE. REMAINS CALM AND COOPERATIVE.
--- NOTE | 2018-10-01 17:39 | PN ---
PATIENT:KARINA MORA MEDICAL RECORD: [id number] LOCATION:ROLFLibertad ModiLissy ADMISSION DATE: 09/21/18 PROGRESS NOTE DATE OF SERVICE: 09/30/2018 SUBJECTIVE: The patient's case was discussed with staff. He has no new complaint. OBJECTIVE: The patient is in good behavioral control with limited insight about his condition. He does tolerate his medicines well. ASSESSMENT: No change in diagnoses. PLAN: Current medicines and therapies have been reviewed and will be maintained. Long-term prognosis is guarded. TRANSINT:[id number] Voice Confirmation ID: [id number] DOCUMENT ID: [id number] TILA MENSAH MD at 1739 CC: [id number] DICTATION DATE: 09/30/18 1212 PRESCHOOL AIDE: 09/30/18 1426 ADM IN [place] [id number] [place] [address]
--- NOTE | 2018-10-02 01:12 | NUR ---
RECEIVED IN HALLWAY OUTSIDE OF NURSES STATION. RESTING IN RECLINER WITH PEERS AT HIS SIDE. VERY CONFUSED. CALM AND COOPERATIVE WITH CARE AND ASSESSMENT. NO SIGNS OF AGGRESSION. REDIRECT AND REORIENT NEEDED. RESTING IN BED WITH EYES CLOSED AT THIS TIME. CONTINUE PLAN OF CARE.
[2018-10-02 06:58] LABS: BASOPHILS 0.3 % (0-2); EOSINOPHILS 4.2 % (0-7); HEMATOCRIT 39.6 % (42.0-54.0); HEMOGLOBIN 12.8 g/dL (13.5-17.5); IMMATURE GRANULOCYTES 0.4 % (0-5); LYMPHOCYTES 19.8 % (15-50); MCH 29.4 pg (26.0-34.0); MCHC 32.3 g/dL (31.0-37.0); MEAN PLATELET VOLUME 10.1 fL (7.4-10.4); MONOCYTES 13.3 % (2-11); PLATELET COUNT 211 10x3/uL (130-400); RBC 4.35 10x6/uL (4.20-6.10); RDW 14.1 % (11.5-14.5); WBC 7.4 10x3/uL (4.8-10.8)
[2018-10-02 07:40] LABS: ALBUMIN 2.7 g/dL (3.4-5.0); ANION GAP 16.1 mmol/L (8-16); BILIRUBIN - TOTAL 0.55 mg/dL (0.2-1.3); CALCIUM 8.9 mg/dL (8.5-10.1); CARBON DIOXIDE 24.8 mmol/L (21.0-32.0); CREATININE - SERUM 1.3 mg/dL (0.6-1.3); POTASSIUM - SERUM 3.9 mmol/L (3.5-5.1); PROTEIN - SERUM 7.3 g/dL (6.4-8.2)
[2018-10-02 08:00] VITALS: BP 144/83
--- NOTE | 2018-10-02 15:11 | PN ---
PATIENT:KARINA MORA MEDICAL RECORD: [id number] LOCATION:JET Quintero ADMISSION DATE: 09/21/18 PROGRESS NOTE DATE OF SERVICE: 10/01/2018 SUBJECTIVE: The patient's case was discussed with staff. He has no new complaint. OBJECTIVE: The patient denies intent to harm himself or others. He generally tolerates his medicines well. ASSESSMENT: No change in diagnoses. PLAN: Supportive and educational interventions were made. The patient's long-term prognosis is exceedingly poor. He is not eating or drinking adequately. He is so confused. He pulled out his own Mckenzie catheter. He is very advanced in his dementia. TRANSINT:[id number] Voice Confirmation ID: [id number] DOCUMENT ID: [id number] TILA MENSAH MD at 1511 CC: [id number] DICTATION DATE: 10/01/181757 PRINTING PLATE CLERK: 10/01/18 2328 ADM IN [place] [address] [place] [address]
--- NOTE | 2018-10-02 18:41 | NUR ---
PT WAS EVALUATED BY [facility] AND WAS ACCEPTED. PT'S FAMILY REQUESTED DC TO BE SET FOR MONDAY SO THEY CAN PREPARE FOR DISCHARGE.
[2018-10-02 19:31] VITALS: BP 103/60
--- NOTE | 2018-10-03 09:00 | NUR ---
RECEIVED IN ROOM AND ASSISTED INTO GERICHAIR. MORE ALERT AND AWAKE TODAY. CALM AND COOPERATIVE WITH CARE AND ASSESSMENT. NO AGGRESSION NOTED. PROVIDE PRESCRIBED MEDICATIONS. FALL PRECAUTIONS IN PLACE. CONTINUE PLAN OF CARE.
[2018-10-03 09:29] VITALS: BP 146/92
--- NOTE | 2018-10-03 10:52 | NUR ---
Nutrition Follow Up: Chart reviewed. Noted pt scheduled to d/c to hospice 10/04/18. Diet: Regular Pureed PO Intake: 18% meal avg BM: 10/01/18 Labs reviewed Meds noted including Megace Rec continue regular diet with [employer] recs for consistencies. Will honor food preferences and provide supplements prn. Rec continue appetite stimulant. RD following.
--- NOTE | 2018-10-03 12:30 | NUR ---
ASSISTED PATIENT WITH LUNCH/ APETITE GOOD. ATE 100%. DRINKING TEA NOW.
--- NOTE | 2018-10-03 16:07 | PN ---
PATIENT:KARINA MORA MEDICAL RECORD: [id number] LOCATION:JET Quintero ADMISSION DATE: 09/21/18 PROGRESS NOTE DATE OF SERVICE: 10/02/2018 SUBJECTIVE: The patient's case was discussed with staff. He has no new complaint. OBJECTIVE: The patient is in good behavioral control with limited insight about his condition. He does tolerate his medicines well. ASSESSMENT: No change in diagnoses. PLAN: Current medicines and therapies have been reviewed and will be maintained. The patient's prognosis is exceedingly poor and he has been referred to hospice. TRANSINT:[id number] Voice Confirmation ID: [id number] DOCUMENT ID: [id number] TILA MENSAH MD at 1607 CC: [id number] DICTATION DATE: 10/02/18 1611 TRAIN CONTROL ELECTRONIC TECHNICIAN: 10/02/18 1757 ADM IN [place] [address] [place] [address]
[2018-10-03] MEDS ORDERED: LISINOPRIL10 MG PO (16:27)
[2018-10-03] MEDS ORDERED: TRAZODONE HCL100 MG PO (16:28)
[2018-10-03] MEDS ORDERED: VIGAMOX3 ML EACH EYE (16:28)
[2018-10-03] MEDS ORDERED: LEVOXYL100 MCG PO (16:29)
[2018-10-03] MEDS ORDERED: DULCOLAX5 MG PO (16:29)
[2018-10-03] MEDS ORDERED: MIRALAX17 GM PO (16:29)
[2018-10-03] MEDS ORDERED: LINZESS145 MCG PO (16:29)
[2018-10-03] MEDS ORDERED: MEGACE40 MG PO (16:30)
[2018-10-03] MEDS ORDERED: VITAMIN D5000 UNIT PO (16:30)
[2018-10-03] MEDS ORDERED: NYSTATIN1 PWD TOPICAL (16:30)
[2018-10-03 20:48] VITALS: BP 129/79
--- NOTE | 2018-10-03 23:31 | NUR ---
RECEIVED IN PATIENT ROOM. RESTING IN BED WITH EYES OPEN. CALM AND COOPERATIVE WITH CARE AND ASSESSMENT. NO SIGNS OF AGITATION OR AGGRESSION. REDIRECT AND REORIENT NEEDED. RESTING IN BED WITH EYES CLOSED AT THIS TIME. CONTINUE PLAN OF CARE.
[2018-10-04 10:01] VITALS: BP 141/89
--- NOTE | 2018-10-04 11:30 | NUR ---
B) The patient is awake and alert, he is oriented to self only, he is not aware if place or time, he keeps asking when he gets to go home. It is noted that he has a decub. red area on his right buttock, he has a reddened area on his lower back and a red area on his left hip. On his face he has a red area over his left eye. He did help to stand with two assit this am. He is weak. I) Provide prescribed meds. Encourage drinking fluids. R) The patient is compliant with meds and he is drinking and eating better. P) Continue discharge plan.
--- NOTE | 2018-10-04 14:25 | NUR ---
Called report to [facility], faxed all orders and MED rec to the [facility]. The patient is packed and ready to go. Called [facility].
--- NOTE | 2018-10-04 14:42 | PN ---
PATIENT:KARINA MORA MEDICAL RECORD: [id number] LOCATION:JET Modi112 ADMISSION DATE: 09/21/18 PROGRESS NOTE DATE OF SERVICE: 10/03/2018 SUBJECTIVE: The patient's case was discussed with staff. He has no new complaint. OBJECTIVE: The patient is actually eating better than he has been. I think the Megace is starting to have its effect. He is no longer nearly as agitated as he has previously been. This does not change my view about his long-term prognosis unfortunately, but he is having small rally here and I think at this point, we have done everything that we reasonably can and to assist him. ASSESSMENT: No change in diagnoses. PLAN: The patient is going to be transitioned out of the [facility]. [facility] at the [facility] by hospice. TRANSINT:[id number] Voice Confirmation ID: [id number] DOCUMENT ID: [id number] TILA MENSAH MD at 1442 CC: [id number] DICTATION DATE: 10/03/18 1626 SUMATRA OPENER: 10/03/18 2225 ADM IN [facility] [address] [place] [address]
--- NOTE | 2018-10-04 14:50 | NUR ---
[facility] is here to transport the patient to the [facility]. The transport paper and face sheet are provided to the EMS as well as the hard copy of the orders and medication list. The patient is d/c'd from the unit now.
--- NOTE | 2018-10-05 15:20 | PN ---
PATIENT:KARINA MORA MEDICAL RECORD: [id number] LOCATION:JET Quintero ADMISSION DATE: 09/21/18 PROGRESS NOTE DATE OF SERVICE: 10/04/2018 SUBJECTIVE: The patient's case was discussed with staff. He has no new complaint. OBJECTIVE: The patient denies intent to harm himself or others. He does tolerate his medicines well. He is actually eating better and seems to have improved significantly. ASSESSMENT: No change in diagnoses. PLAN: The patient is going to be [facility]ed [facility] to the [facility] with comfort care. He is still not eating enough to provide for long-term survival. I think his long-term prognosis is guarded and probably the current improvement is not going to be long lasting. He unfortunately has a very late stage dementia and is still only oriented to person. TRANSINT:[id number] Voice Confirmation ID: [id number] DOCUMENT ID: [id number] TILA MENSAH MD at 1520 CC: [id number] DICTATION DATE: 10/04/18 1459 WIRE SPLICER: 10/04/18 1841 DIS IN 10/04/18 [facility] [address] [place] [address]
--- NOTE | 2018-10-09 15:55 | DS ---
PATIENT:KARINA MORA :31 MEDICAL RECORD: [id number] DISCHARGE SUMMARY ADMISSION DATE: 09/21/18 DISCHARGE DATE: 10/04/18 IDENTIFYING DATA: The patient is 83 years old and he is admitted to the hospital on a voluntary basis because of agitation. The patient's family apparently brought him to the Emergency Room and reported that he was unable to walk and said that he had been walking just fine the day prior. Apparently, the evaluation in the Emergency Room indicated no obvious reason that would explain why he suddenly was no longer able to walk including no neurologic reason. There was no reason to admit him to the medical floor. He had no medical criteria to do so. The family then reported that he had been very agitated with them and so he was referred to us for hospitalization. HOSPITAL COURSE: The patient was admitted to the hospital and fully evaluated from both a medical, psychological, and social standpoint. The patient was quite confused, very agitated, did not eat adequately, and was sometimes not even oriented to person. Various combinations of medicines were tried to address the agitation with limited success. The patient was not eating or drinking adequately through the course of the hospitalization. Over the course of the 12-day hospitalization, it became quite clear that this patient was severely demented. In fact, he was in the final stages of dementia. He would often have food fed to him but would take the food and move it around in his mouth and would not swallow it, would just spit it out. This behavior where he was showing a loss of how to process, chew, and swallow food is consistent with end-stage dementing process and in actuality once a very detailed history was taken from the family, it was clear that this patient has been significantly declining for a long time. It was decided that the patient needed long-term care and he was referred to that, he was also referred for comfort care or hospice. DISCHARGE DIAGNOSES: AXIS I: Senile dementia of the Alzheimer's type with behavioral disturbances. AXIS II: None. AXIS III: Hypertension, generalized weakness with gait difficulty, gastroesophageal reflux disease. AXIS IV: Moderate stressors. AXIS V: Global Assessment Of Functioning is 30. PLAN: At the time of discharge, the patient was not acutely or directly dangerous to himself or caregivers. It was unfortunately quite clear that the patient had a very advanced dementia and was not likely to survive much longer unless improvements in his oral intake were immediate and significantly better. Followup is to be with his primary care physician and again he was referred for hospice and comfort care measures because of a very late end-stage dementia. TRANSINT:[id number] Voice Confirmation ID: [id number] DOCUMENT ID: [id number] DISCHARGE SUMMARY REPORT [id number] KARINA MORA PETER MD at 1555 CC: [id number] DICTATION DATE: 10/08/18 1632 EXCEL EXPERT: 10/09/18 0118 DIS IN 10/04/18 [facility] [address] [place] [address]
== END 2018-10-04 15:24 | DRG 57 ==
LOC: D.PSYCH 16:41
PROVIDERS: Family Medicine; ADMIT Psychiatry & Neurology Psychiatry
DX: G30.1 Alzheimer's disease with late onset (principal); F02.81 Dementia in other diseases classified elsewhere, unspecified severity, with behavioral disturbance; I10 Essential (primary) hypertension; R53.1 Weakness; K21.9 Gastro-esophageal reflux disease without esophagitis; M51.36 Other intervertebral disc degeneration, lumbar region; F41.9 Anxiety disorder, unspecified; F32.9 Major depressive disorder, single episode, unspecified; J30.9 Allergic rhinitis, unspecified; E53.8 Deficiency of other specified B group vitamins; E55.9 Vitamin D deficiency, unspecified; E03.9 Hypothyroidism, unspecified; B37.9 Candidiasis, unspecified; K59.00 Constipation, unspecified; R13.10 Dysphagia, unspecified; E86.0 Dehydration